=== PATIENT | female | born 1985 | race Caucasian/White ===

== ENCOUNTER 2019-03-23 14:19 | Inpatient (IN) | payer OTHER ==
[~2019-03-23] VITALS: Ht 154.9 cm; Wt 112.3 kg
--- NOTE | 2019-03-23 14:48 | NUR ---
NO DISTRESS NOTED. VSS. PT ALERT AND ORIENTED, RESP E/U.
--- NOTE | 2019-03-23 16:17 | NUR ---
REC'D A 33/F IN H7 WITH C/O EDUAR FLANK PAIN WITH N/V X 1 DAY. PT REPORTS CONSTANT, SHARP LIKE RADIATES TO SUPRAPUBIC. PT DENIES FEVER. PT AAOX4, CLEAR SPEECH, RESP E/U, IN NO ACUTE DISTRESS.
--- NOTE | 2019-03-23 16:28 | NUR ---
DR SHAIKH AT BEDSIDE FOR MSE.
[2019-03-23 17:59] LABS: BASOPHIL % 0.1 % (0-2); PLATELET COUNT 306 x10^3mcL (130-400); RED CELL DISTRIBUTION WIDTH 14.8 % (11.5-14.5)
[2019-03-23 18:23] LABS: ALBUMIN 3.5 g/dL (3.4-5.0); ALKALINE PHOSPHATASE 63 U/L (46-116); ALT/SGPT 22 U/L (14-59); AST/SGOT 17 U/L (15-37); BILIRUBIN TOTAL 0.3 mg/dL (0.20-1.00); CALCIUM 8.5 mg/dL (8.5-10.1); CARBON DIOXIDE 27.7 mmol/L (21-32); CHLORIDE SERUM 101 mmol/L (98-107); CREATININE SERUM 0.8 mg/dL (0.6-1.0); GFR1 > 60 mL/min; GLUCOSE SERUM 124 mg/dL (74-106); LIPASE 134 IU/L (73-393); POTASSIUM SERUM 4.5 mmol/L (3.5-5.1); SODIUM SERUM 138 mmol/L (136-145); TOTAL PROTEIN, SERUM 7.4 g/dL (6.4-8.2)
--- NOTE | 2019-03-23 19:15 | NUR ---
PT AMBULTED [facility] TO [address] I WILL RESUME FURTHER CARE OF THIS PATIENT. DR SHAIKH AT THE BEDSIDE.
--- NOTE | 2019-03-23 19:29 | NUR ---
FLUIDS INFUSING NO PROB, NO INFILTRATION OR PAIN NOTED TO IV SITE, PT C/O RLQ PAIN AT THIS TIME. PT DENIES ANY NAUSEA AT THIS. PT IS AAOX4, NO DISTRESS NOTED, RESP E/U, SKIN INTACT, WARM, DRY, AND PINK. PT ON MONITOR, VSS. BED IN LOWEST POSITION, CALL CROSS WITHIN REACH. WILL CONT TO MONITOR.
[2019-03-23 20:06] LABS: MAGNESIUM 1.8 mg/dL (1.8-2.4); PHOSPHOROUS 3.3 mg/dL (2.5-4.9)
--- NOTE | 2019-03-23 20:57 | NUR ---
PT TAKEN OF THE FLOOR TO OR BY POOL COORDINATORSUKI MICHELLE VIA [facility]. . PT NOT IN ANY DISTRESS, RESP E/U, SKIN NOTED INTACT, PALE AND MOIST AT THIS TIME. PT IS AAOX4.
--- NOTE | 2019-03-23 21:03 | NUR ---
REPORT GIVEN TO OZZIE COHN ON [facility] WHO WILL RESUME FURTHER CARE OF THIS PATIENT AFTER SURGERY.
[2019-03-23 21:05] LABS: CHOLESTEROL/HDL RATIO 5.3
--- NOTE | 2019-03-23 22:54 | NUR ---
RECEIVED PT FROM PACU S/P LAPAROTOMY APPENDECTOMY. PT DROWSY BUT EASILY AROUSABLE. ORIENTED X4. DENIES HEADACHE/DIZZINESS. ABLE TO FOLLOW COMMANDS. NO SOB NOTED, LUNG SOUNDS CTA. DENIES CHEST PAIN/PRESSURE, VA=89. PT STATED THAT SHE HAS 4/10 ABDOMINAL PAIN, STATED THAT PAIN IS TOLERABLE AT THIS TIME. ABDOMEN IS SOFT AND ROUND. BOWEL SOUNDS ACTIVE. DENIES NAUSEA/VOMITING. SCD'S ON BLE. W/ 3 SURGICAL INCISIONS ON THE ABDOMEN COVERED W/ 3 LARGE BAND-AIDS, CDI. IV SITE PATENT AND INTACT. SIDE RAILS UPX2. CALL LIGHT ON REACH. ENDORSED TO PRIMARY NURSE OZZIE FOR CONTINUITY OF CARE
[2019-03-23 23:10] VITALS: BP 121/78
[2019-03-23 23:16] VITALS: Ht 154.9 cm; Wt 112.3 kg
--- NOTE | 2019-03-23 23:36 | NUR ---
PT RESTING IN BED. STARTED IVF TO RAC, D5NS WITH 20MEQ KCL AT 125ML/HR. CALL LIGHT WITHIN REACH. BED IS IN LOWEST POSITION. WILL CONTINUE TO MONITOR CLOSELY.
--- NOTE | 2019-03-24 04:00 | NUR ---
PT C/O PAIN 02/11 TO ABD MEDICATED WITH MORPHINE ORDERED. PT RESTING IN BED. IVF ONGOING. CALL LIGHT WITHIN REACH. WILL CONTINUE TO MONITOR CLOSELY.
[2019-03-24 05:34] VITALS: BP 103/56
--- NOTE | 2019-03-24 06:15 | NUR ---
ZOSYN INFUSING WELL. PT RESTING IN BED IN NO FURTHER ABD PAIN. CALL LIGHT WITHIN REACH. BED IS IN LOWEST POSITION. ALL NEEDS TENDED TO. WILL ENDORSE TO INCOMING SHIFT.
[2019-03-24 07:22] LABS: PLATELET COUNT 279 x10^3mcL (130-400)
[2019-03-24 07:26] LABS: BASOPHIL % 0 % (0-2); RED CELL DISTRIBUTION WIDTH 15.2 % (11.5-14.5)
--- NOTE | 2019-03-24 07:30 | NUR ---
PT ENDORSE TO ME THIS MORNING. AA/OX4 , BREATHING EVEN AND UNLABORED ON RA, NO ACUTE RESP DISTRESS OR SOB NOTED. MEDSURG. DENIES ANY CP OR PRESSURE. BOWEL SOUNDS ACTIVE IN ALL FOUR QUADS. VOIDS FREELY. GEN WEAKNESS DUE TO ABD DISCOMFORT. X3 SUTURES / RYANNE TO ABD WIHT BANDAIDS CDI. IV TO THE RAC INTACT AND PATENT, INFUSING AT 100ML/HR OF NS, NO REDNESS OR SWELLING NOTED. CALL LIGHT IN REACH/ BED IN LOW POSITION. WILL CONTINUE TO MONITOR.
[2019-03-24 07:38] LABS: CALCIUM 7.6 mg/dL (8.5-10.1); CARBON DIOXIDE 22.3 mmol/L (21-32); CHLORIDE SERUM 104 mmol/L (98-107); CREATININE SERUM 0.9 mg/dL (0.6-1.0); GFR1 > 60 mL/min; GLUCOSE SERUM 140 mg/dL (74-106); MAGNESIUM 1.7 mg/dL (1.8-2.4); PHOSPHOROUS 2.6 mg/dL (2.5-4.9); POTASSIUM SERUM 4.4 mmol/L (3.5-5.1); SODIUM SERUM 138 mmol/L (136-145)
[2019-03-24 08:09] VITALS: BP 111/90
--- NOTE | 2019-03-24 08:35 | NUR ---
PT C/O 10 LEFT UPPER ABD PAIN, MEDICATED PER EMAR.
--- NOTE | 2019-03-24 09:53 | NUR ---
PT STATING HER PAIN IS 6/10 AND NORCO DID NOT WORK. MEDICATED PER EMAR. WILL CONTINUE TO MONITOR.
--- NOTE | 2019-03-24 10:36 | NUR ---
ASSISTED PT UP TO BATHROOM, VOIDED X1. AMBULATED TO NURSING STATION X1 TOLERATED WELL. WILL CONTINUE TO MONITOR.
[2019-03-24 11:37] VITALS: BP 100/64
--- NOTE | 2019-03-24 13:05 | NUR ---
PT TOLERATED 100% OF CLEAR LIQ BREAKFAST AND LUNCH= NO NV NOTED. PT IS ASKING FOR FULL LIQ, DR. DIALLO MADE AWARE.
--- NOTE | 2019-03-24 15:38 | NUR ---
PT C/O OF ABD PAIN 02/11, MEDICATED PER EMAR/ ENCOURAGED PT TO AMB MUCH POSSIBLE, PT AGREED. WILL CONTINUE TO MONITOR.
[2019-03-24 15:47] VITALS: BP 106/62
--- NOTE | 2019-03-24 17:43 | NUR ---
PT TOLERATED 100% OF FULL LIQ DIET, DENIES ANY N/V. WILL CONTINUE TO MONITOR.
--- NOTE | 2019-03-24 18:40 | NUR ---
NO ACUTE CHANGES AT THIS TIME. NO ACUTE RESP DISTRESS OR SOB NOTED. X3 ABD SUTURES AND RYANNE INTACT, NO NEW DRAINAGE NOTED. IV TO THE RAC INTACT AND PATENT/ HEPLOCKED. WILL ENDORSE TO INCOMING RN.
[2019-03-24 19:26] LABS: BASOPHIL % 0.4 % (0-2); PLATELET COUNT 252 x10^3mcL (130-400)
[2019-03-24 19:27] LABS: RED CELL DISTRIBUTION WIDTH 15.4 % (11.5-14.5)
[2019-03-24 19:31] LABS: CALCIUM 7.7 mg/dL (8.5-10.1); CARBON DIOXIDE 26.6 mmol/L (21-32); CHLORIDE SERUM 108 mmol/L (98-107); CREATININE SERUM 0.9 mg/dL (0.6-1.0); GFR1 > 60 mL/min; GLUCOSE SERUM 124 mg/dL (74-106); POTASSIUM SERUM 3.9 mmol/L (3.5-5.1); SODIUM SERUM 141 mmol/L (136-145)
[2019-03-24 20:04] VITALS: BP 114/82
--- NOTE | 2019-03-24 20:24 | NUR ---
PT C/O INCISIONAL PAIN 03/14 MEDICATED WITH NORCO ORDERED , LUNG SOUNDS CTA , ABD LARGE AND SOFT , BS HYPOACTIVE ENCOURAGED PT TO AMBULATES TOLERATED , PT HAD NO BM SINCE SURGERY WILL NOTIFY MD FOR STOOL SOFTNER HL INTACT , PT'S POST-OP LAP APPY INCISION WITH THREE BAND-AIDS CLEAN DRY AND INTACT , HL PATENT FLUSHING WELL .
--- NOTE | 2019-03-25 01:38 | NUR ---
PT C/O SX PAIN 01/12 MEDICATED WITH NORCO 7.5/325 PO .
--- NOTE | 2019-03-25 02:04 | NUR ---
[facility] PT'S AMBULATING ON THE UNDERWOOD , DENY PAIN AT THE MOMENT.
--- NOTE | 2019-03-25 03:30 | NUR ---
I HAVE REVIEWED THE DATA COLLECTION BY ORGANIZATIONAL RESEARCH CONSULTANT (NAME):MARIA EUGENIA NICHOLS ENTERED ON (DATE/TIME): I CONCUR WITH THE DATA AND ANY EXCEPTIONS OR COMMENTS ARE LISTED BELOW:
[2019-03-25 04:41] VITALS: BP 108/70
--- NOTE | 2019-03-25 06:11 | NUR ---
NO CHANGES OF CONDITION NOTED, ALL DUE MEDS GIVEN NO REACTION NOTED, HL INTACT INFUSING WELL ,BANDAIDS X3 INTACT , PT DENY PAIN AT THE MOMENT .
[2019-03-25 06:58] LABS: BASOPHIL % 0.4 % (0-2); PLATELET COUNT 232 x10^3mcL (130-400)
[2019-03-25 07:03] LABS: CALCIUM 7.8 mg/dL (8.5-10.1); CARBON DIOXIDE 27.1 mmol/L (21-32); CHLORIDE SERUM 106 mmol/L (98-107); CREATININE SERUM 0.8 mg/dL (0.6-1.0); GFR1 > 60 mL/min; GLUCOSE SERUM 93 mg/dL (74-106); MAGNESIUM 1.9 mg/dL (1.8-2.4); PHOSPHOROUS 2.6 mg/dL (2.5-4.9); POTASSIUM SERUM 4.5 mmol/L (3.5-5.1); SODIUM SERUM 140 mmol/L (136-145)
--- NOTE | 2019-03-25 07:12 | NUR ---
REPORT TAKEN FROM REFRIGERATOR CRATER NURSE AT THE BEDSIDE, PT AWAKE ALERT AND ORIENTED X 4 , IN NAD, WILL CONTINUE TO MONITOR.
[2019-03-25 07:35] LABS: RED CELL DISTRIBUTION WIDTH 15.7 % (11.5-14.5)
[2019-03-25 08:23] VITALS: BP 108/62
[2019-03-25] MEDS ORDERED: IBUPROFEN400 MG PO (10:32)
[2019-03-25] MEDS ORDERED: NORCO1 TA2 PO (10:32)
[2019-03-25 11:04] VITALS: BP 108/62
--- NOTE | 2019-03-25 12:46 | NUR ---
PT SIGNED DISCHARGE PAPERWORK AT THIS TIME, QUESTIONS ANSWERED, PRESCRIPTIONS GIVEN TO PT ALONG WITH D/C PAPERWORK, COPIES ADDED TO PHYSICAL CHART. PHOTO TAKEN OF SURGICAL WOUNDS PRIOR TO D/C AND ADDED TO CHART FOR MD SIGNATURE. PT VERBALIZED UNDERSTANDING OF DISCHARGE INSTRUCTIONS. IV DC'D FROM RIGHT AC 20G WITH CATH INTACT, PT TOLERATED WELL, GUAZE AND COBAN DRESSING APPLIED TO SITE AFTER BLEEDING WAS CONTROLLED. PT ADVISED TO LEAVE IV DRESSING IN PLACE FOR 15 MINUTES. GENERAL MANAGER ORACLE DATA CLOUD MADE AWARE THAT PT IS DICHARGED AND READY TO BE TAKEN TO D/C OFFICE.
== END 2019-03-25 12:58 | disposition home or self-care (01) | DRG 342 ==
LOC: ED 14:19 → EDBD 14:19 → MU 19:22
PROVIDERS: Emergency Medicine; Surgery; ADMIT Internal Medicine
PROC: 0DTJ4ZZ Resection of Appendix, Percutaneous Endoscopic Approach (ICD-10-PCS; principal; 2019-03-23 20:30)
DX: K35.80 Unspecified acute appendicitis (principal); Z68.42 Body mass index [BMI] 45.0-49.9, adult; E03.9 Hypothyroidism, unspecified; E78.5 Hyperlipidemia, unspecified; E88.81 Metabolic syndrome and other insulin resistance; E28.2 Polycystic ovarian syndrome
CPT/HCPCS: G0378; J0330; J0696; J1170; J1885; J2175; J2250; J2270; J2405; J2543; J2704; J2710; J3010; J3480; J3490; J7030; J7120; Q0092; Q0162